=== PATIENT | male | born 1995 | race Hispanic/Latino ===

== ENCOUNTER 2020-03-12 16:19 | Emergency (ER) | payer SELFPAY ==
--- NOTE | 2020-03-12 16:57 | RAD ---
RIGHT ANKLE THREE VIEWS: 03/12/20 HISTORY: Injury, right ankle pain. FINDINGS/IMPRESSION: Soft tissue swelling is present. The ankle mortise is maintained. No acute fracture or dislocation is identified. POS: [facility]
== END 2020-03-12 17:31 | disposition home or self-care (01) ==
LOC: ERS 16:19
DX: S93.401A Sprain of unspecified ligament of right ankle, initial encounter (principal); X50.1XXA Overexertion from prolonged static or awkward postures, initial encounter

== ENCOUNTER 2025-10-17 13:01 | Observation (INO) | payer OTHER ==
[2025-10-17 14:03] LABS: #Basophils 0.05 10x3/uL (0.0-0.2); #Eosinophils 0.05 10x3/uL (0.0-0.7); #Monocytes 0.62 10x3/uL (0.11-0.59); #Neutrophils 8.20 10x3/uL (1.40-6.50); %Basophils 0.5 % (0.0-1.0); %Eosinophils 0.5 % (0.0-10.0); %Lymphocytes 17.3 % (21.0-51.0); %Monocytes 5.7 % (0.0-10.0); %Neutrophils 75.4 % (42.0-75.0); Hematocrit 41.5 % (42.0-52.0); Hemoglobin 14.2 g/dL (14.0-18.0); Mean Corpuscular Hemoglobin 28.7 pg (27.0-31.0); Mean Corpuscular Volume 84.0 fL (78.0-98.0); Platelet Count 370 10x3/uL (130-400); Red Blood Cell (RBC) Count 4.94 mill/uL (4.70-6.10); White Blood Cell (WBC) Count 10.86 10x3/uL (4.8-10.8)
[2025-10-17] MEDS ORDERED: Iopamidol-370 76% 500 ML MDV (1 ML CHARGE) ONE (14:08)
[2025-10-17 14:23] LABS: ALT (SGPT) 24 U/L (Less than 45); AST (SGOT) 33 U/L (11-34); Albumin 4.2 g/dL (3.1-4.5); Alkaline Phosphatase 65 U/L (40-110); Anion Gap 12 mmol/L (10-20); BUN (Urea Nitrogen) 14 mg/dL (8.9-20.6); Bilirubin, Total 0.4 mg/dL (0.3-1.2); Calc. Creatinine Clearance 0 mL/min (70-130); Calcium 9.5 mg/dL (7.8-10.44); Carbon Dioxide 24 mmol/L (22-29); Chloride 106 mmol/L (98-107); Globulin 3.3 g/dL (2.4-3.5); Glucose 101 mg/dL (70-105); Lipase 22 U/L (8-78); Potassium 3.5 mmol/L (3.5-5.1); Sodium 138 mmol/L (136-145)
[2025-10-17] MEDS ORDERED: Acetaminophen 500 MG TAB ONE (14:36)
[2025-10-17 14:37] LABS: INR-International Normal Ratio 1.1; Prothrombin Time 13.8 sec (12.0-14.7)
[2025-10-17 14:45] LABS: PTT 27.4 sec (22.9-36.1)
[2025-10-17] MEDS ORDERED: Methocarbamol 500 MG TAB ONE (15:13)
[2025-10-17] MEDS ORDERED: TETANUS, DIPHTHERIA TOX,ADULT (TDVAX) 0.5 ML VIAL IM ONE (18:00)
[2025-10-17 20:08] VITALS: BMI 32.7
[2025-10-17] MEDS: Acetaminophen 325 MG TAB PO PRN (22:19)
[2025-10-18 15:39] VITALS: BP 120/77; TEMP 98
[2025-10-20] MEDS ORDERED: FLU (Fluarix Triv) 25-26 (6MOS UP)/PF 45 MCG/0.5 ML Syringe IM ONE (09:00)
== END 2025-10-18 15:33 | disposition home or self-care (01) ==
LOC: ERS 13:01 → SURG A 18:52
PROVIDERS: ADMIT Surgery; ATTEND Surgery
DX: S06.9XAA Unspecified intracranial injury with loss of consciousness status unknown, initial encounter (principal); S42.131A Displaced fracture of coracoid process, right shoulder, initial encounter for closed fracture; V89.2XXA Person injured in unspecified motor-vehicle accident, traffic, initial encounter
CPT/HCPCS: 70450; 71260; 72125; 74177; 80053; 80307; 83690; 85025; 85610; 85730; 90471; 90715; 93005; 96374; 96375; G0378; G0390; J3010; Q9967